=== PATIENT | male | born 1980 | race Caucasian/White ===

== ENCOUNTER 2021-12-30 05:52 | Emergency (ER) | payer SELFPAY ==
[2021-12-30] MEDS ORDERED: Pantoprazole 40 MG in Sodium Chloride 0.9% 10 ML IVPUSH ONE (06:26)
[2021-12-30] MEDS ORDERED: Sodium Chloride 0.9% 2.5 ML Syringe FLUSH PRN (06:26)
[2021-12-30] MEDS ORDERED: Sodium Chloride 0.9% 10 ML Syringe FLUSH PRN (06:26)
[2021-12-30] MEDS ORDERED: Ondansetron 4 MG/2 ML SDV IVPUSH ONE (06:26)
[2021-12-30] MEDS ORDERED: Haloperidol Lactate 5 MG/ML SDV IM ONE (06:31)
[2021-12-30] MEDS ORDERED: Sodium Chloride 0.9% 1,000 ML IV ONE (06:32)
[2021-12-30] MEDS ORDERED: Haloperidol Lactate 5 MG/ML SDV ONE (06:32)
[2021-12-30 06:49] LABS: BLOOD UREA NITROGEN,BUN 11 mg/dL (7.0-18.0); CARBON DIOXIDE,CO2 25.4 mmol/L (21.0-32.0); CHLORIDE,CL 100 mmol/L (98-107); GLUCOSE RANDOM 260 mg/dL (74-106); LIPASE 123 U/L (73-393); POTASSIUM,K 4.1 mmol/L (3.5-5.1); SODIUM,NA 134 mmol/L (136-148)
[2021-12-30 06:50] LABS: ESTIMATED GFR 71 mL/min (>60)
[2021-12-30] MEDS ORDERED: Iopamidol 755 MG/ML 200 ML Multipack Bottle IVPUSH ONE (07:09)
[2021-12-30] MEDS ORDERED: Iopamidol 755 Mg/ML 100 ML Bottle IVPUSH ONE (07:13)
[2021-12-30 08:01] LABS: HEMOGLOBIN A1C 8.8 %
== END 2021-12-30 08:39 | disposition home or self-care (01) ==
LOC: MW.ED 05:52
DX: E11.9 Type 2 diabetes mellitus without complications (principal); Z72.0 Tobacco use; Z79.84 Long term (current) use of oral hypoglycemic drugs
CPT/HCPCS: 36415; 74177; 80053; 83036; 83690; 85025; 96361; 96372; 96374; 99284; C9113; J1630; J3490; J7030; Q9967

== ENCOUNTER 2022-01-31 23:08 | Emergency (ER) | payer OTHER | END 2022-02-01 01:50 | disposition left against medical advice (07) | LOC: MW.ED 23:08 | DX: Z53.21 Procedure and treatment not carried out due to patient leaving prior to being seen by health care provider (principal) ==

== ENCOUNTER 2022-02-01 09:28 | Emergency (ER) | payer OTHER ==
[2022-02-01] MEDS ORDERED: Sodium Chloride 0.9% 1,000 ML IV ONE (10:09)
[2022-02-01] MEDS ORDERED: Haloperidol Lactate 5 MG/ML SDV IM ONE (10:09)
[2022-02-01 10:57] LABS: CARBON DIOXIDE,CO2 28.4 mmol/L (21.0-32.0); POTASSIUM,K 4.2 mmol/L (3.5-5.1)
[2022-02-01 11:10] LABS: CORONAVIRUS COVID-19 NAA NEGATIVE (NEGATIVE); INFLUENZA A NAA NEGATIVE (NEGATIVE); INFLUENZA B NAA NEGATIVE (NEGATIVE); RESPIRATORY SYNCYTIAL VIR NAA NEGATIVE (NEGATIVE)
[2022-02-01] MEDS ORDERED: Iopamidol 755 MG/ML 500 ML Multipack Bottle IVPUSH ONE (11:11)
[2022-02-01] MEDS ORDERED: Ibuprofen 400 MG Tab PO ONE (11:36)
[2022-02-01] MEDS ORDERED: Acetaminophen 325 MG Tab PO ONE (11:36)
== END 2022-02-01 13:13 | disposition home or self-care (01) ==
LOC: MW.ED 09:28
DX: R10.13 Epigastric pain (principal); R10.12 Left upper quadrant pain; Z20.822 Contact with and (suspected) exposure to COVID-19
CPT/HCPCS: 0241U; 36415; 74177; 80053; 83690; 85025; 96360; 96372; 99284; A9270; J1630; J7030; Q9967

== ENCOUNTER 2022-03-05 14:51 | Emergency (ER) | payer OTHER ==
[2022-03-05] MEDS ORDERED: Promethazine 25 MG/ML SDV IM ONE (17:50)
[2022-03-05] MEDS ORDERED: Ketorolac 60 MG/2 ML SDV IM ONE (17:50)
[2022-03-05 18:39] LABS: CARBON DIOXIDE,CO2 30.6 mmol/L (21.0-32.0); POTASSIUM,K 3.3 mmol/L (3.5-5.1)
[2022-03-05] MEDS ORDERED: Iopamidol 755 MG/ML 500 ML Multipack Bottle IVPUSH ONE (18:55)
[2022-03-05] MEDS ORDERED: Morphine 4 MG/ML Syringe IVPUSH ONE (18:57)
[2022-03-05] MEDS ORDERED: Sodium Chloride 0.9% 1,000 ML IV ONE (18:58)
[2022-03-05] MEDS ORDERED: HYDROmorphone 1 MG/ML Syringe IVPUSH ONE (20:49)
[2022-03-05] MEDS ORDERED: Ondansetron 4 MG/2 ML SDV IVPUSH ONE (20:49)
[2022-03-05 21:01] LABS: CORONAVIRUS COVID-19 NAA NEGATIVE (NEGATIVE); INFLUENZA A NAA NEGATIVE (NEGATIVE); INFLUENZA B NAA NEGATIVE (NEGATIVE)
== END 2022-03-05 22:10 | disposition home or self-care (01) ==
LOC: MW.ED 14:51
DX: K59.00 Constipation, unspecified (principal); F17.210 Nicotine dependence, cigarettes, uncomplicated; Z20.822 Contact with and (suspected) exposure to COVID-19
CPT/HCPCS: 0240U; 36415; 74019; 74177; 76705; 80053; 81001; 83690; 85025; 96361; 96372; 96374; 96375; 99284; J1170; J1885; J2270; J2405; J2550; J7030; Q9967

== ENCOUNTER 2022-07-31 09:57 | Emergency (ER) | payer SELFPAY ==
[2022-07-31] MEDS ORDERED: Ondansetron 4 MG/2 ML SDV IVPUSH ONE (10:29)
[2022-07-31] MEDS ORDERED: Sodium Chloride 0.9% 1,000 ML IV ONE (10:29)
[2022-07-31 10:38] LABS: BASOPHILS PERCENT AUTO 0.2 % (0.0-1.5); EOSINOPHILS ABSOLUTE AUTO 0.1 K/uL (0.0-0.7); EOSINOPHILS PERCENT AUTO 0.7 % (0.0-7.0); HEMATOCRIT 40.3 % (38.0-50.0); HEMOGLOBIN 13.9 g/dL (13.0-17.0); LYMPHOCYTES ABSOLUTE AUTO 2.4 K/uL (0.6-2.4); LYMPHOCYTES PERCENT AUTO 27.5 % (16.0-40.0); MEAN CORPUSCULAR HEMOGLOBIN 32.5 pg (27.0-32.0); MEAN CORPUSCULAR HGB CONC 34.5 g/dL (31.0-37.0); MEAN CORPUSCULAR VOLUME 94.2 fL (80.0-98.0); MONOCYTES ABSOLUTE AUTO 0.6 K/uL (0.0-0.8); MONOCYTES PERCENT AUTO 6.6 % (0.0-15.0); NEUTROPHILS ABSOLUTE AUTO 5.7 K/uL (1.4-5.7); NRBC ABSOLUTE 0 K/uL; PLATELET COUNT,PLT 282 K/uL (150-400); RED BLOOD CELL COUNT 4.28 M/uL (4.50-5.90)
[2022-07-31 11:00] LABS: HEMOGLOBIN A1C 5.9 %
[2022-07-31] MEDS ORDERED: Ketorolac 30 MG/ML SDV IVPUSH ONE (11:03)
[2022-07-31 11:26] LABS: A/G RATIO 0.9 (0.9-1.6); ALBUMIN 3.2 g/dL (3.4-5.0); BILIRUBIN TOTAL 0.7 mg/dL (0.2-1.0); CALCIUM 8.7 mg/dL (8.5-10.1); CARBON DIOXIDE,CO2 25.7 mmol/L (21.0-32.0); CREATININE 1.1 mg/dL (0.8-1.3); EST CRCL DRUG DOSING (CG) 93.17 mL/min; MAGNESIUM 2.1 mg/dL (1.8-2.4); POTASSIUM,K 3.8 mmol/L (3.5-5.1); PROTEIN TOTAL,TP 6.6 g/dL (6.4-8.2)
[2022-07-31 12:49] LABS: APPEARANCE,URINE CLEAR; BILIRUBIN,URINE NEGATIVE (NEGATIVE); COLOR,URINE YELLOW; GLUCOSE,URINE NEGATIVE (NEGATIVE); KETONES,URINE NEGATIVE (NEGATIVE); LEUKOCYTE ESTERASE,URINE NEGATIVE (NEGATIVE); NITRITE,URINE NEGATIVE (NEGATIVE); OCCULT BLOOD,URINE NEGATIVE (NEGATIVE); PROTEIN,URINE NEGATIVE (NEGATIVE)
[2022-07-31] MEDS ORDERED: Promethazine 25 MG/ML SDV IM ONE (13:04)
== END 2022-07-31 13:47 | disposition home or self-care (01) ==
LOC: MW.ED 09:57
DX: R10.32 Left lower quadrant pain (principal); R10.13 Epigastric pain; J45.909 Unspecified asthma, uncomplicated; F17.210 Nicotine dependence, cigarettes, uncomplicated; Z48.02 Encounter for removal of sutures; Z91.148 Patient's other noncompliance with medication regimen for other reason
CPT/HCPCS: 36415; 80053; 81003; 83036; 83690; 83735; 85025; 96361; 96372; 96374; 96375; 99284; J1885; J2405; J2550; J7030

== ENCOUNTER 2022-12-17 15:06 | Emergency (ER) | payer SELFPAY ==
[2022-12-17] MEDS ORDERED: Lidocaine 1% PF 2 ML SDV INJECT STA (16:18)
[2022-12-17] MEDS ORDERED: Bupivacaine 0.5% 10 ML SDV INJECT STA (16:18)
== END 2022-12-17 17:02 | disposition home or self-care (01) ==
LOC: MW.ED 15:06
DX: K09.0 Developmental odontogenic cysts (principal)
CPT/HCPCS: 64400; 99282; J3490; 99283

== ENCOUNTER 2023-02-09 00:30 | Emergency (ER) | payer SELFPAY | END 2023-02-09 01:17 | LOC: MW.ED 00:30 | DX: Z02.89 Encounter for other administrative examinations (principal); S31.134A Puncture wound of abdominal wall without foreign body, left lower quadrant without penetration into peritoneal cavity, initial encounter; J45.909 Unspecified asthma, uncomplicated | CPT/HCPCS: 99282; 99283 ==

== ENCOUNTER 2023-03-09 19:50 | Emergency (ER) | payer OTHER ==
[2023-03-09] MEDS ORDERED: Alum Hydro/Mag Hydro/Simeth XS 15 ML, Lidocaine 2% 5 ML PO ONE ×2 (22:56)
[2023-03-09 23:10] LABS: BASOPHILS ABSOLUTE AUTO 0.04 K/uL (0.00-0.20); BASOPHILS PERCENT AUTO 0.4 % (0.0-1.0); EOSINOPHILS ABSOLUTE AUTO 0.05 K/uL (0.00-0.45); EOSINOPHILS PERCENT AUTO 0.5 % (0.0-6.0); HEMOGLOBIN 15.7 g/dL (14.0-18.0); IMMATURE GRAN ABSOLUTE AUTO 0.02 K/uL (0.00-0.05); IMMATURE GRAN PERCENT AUTO 0.2 % (0.0-0.4); LYMPHOCYTES ABSOLUTE AUTO 2.91 K/uL (1.00-4.80); LYMPHOCYTES PERCENT AUTO 27.5 % (24.0-44.0); MEAN CORPUSCULAR HEMOGLOBIN 33.4 pg (28.0-32.0); MEAN CORPUSCULAR HGB CONC 36.5 g/dL (32.0-36.0); MEAN CORPUSCULAR VOLUME 91.5 fL (83.0-99.0); MEAN PLATELET VOLUME 8.7 fL (9.4-12.4); MONOCYTES PERCENT AUTO 7.6 % (0.0-8.0); NEUTROPHILS ABSOLUTE AUTO 6.77 K/uL (1.80-7.70); NEUTROPHILS PERCENT AUTO 63.8 % (41.0-71.0); PLATELET COUNT,PLT 244 K/uL (150-400); WHITE BLOOD CELL COUNT,WBC 10.59 K/uL (3.9-11.3)
[2023-03-10 00:17] LABS: ALBUMIN 3.3 g/dL (3.4-5.0); BILIRUBIN TOTAL 0.9 mg/dL (0.2-1.0); CALCIUM 8.8 mg/dL (8.5-10.1); CARBON DIOXIDE,CO2 31.1 mmol/L (21.0-32.0); EST CRCL DRUG DOSING (CG) 105.62 mL/min; POTASSIUM,K 3.2 mmol/L (3.5-5.1); PROTEIN TOTAL,TP 6.6 g/dL (6.4-8.2)
== END 2023-03-10 00:53 | disposition home or self-care (01) ==
LOC: MW.ED 19:50
DX: R10.13 Epigastric pain (principal)
CPT/HCPCS: 36415; 80053; 83690; 85025; 99284; A9270; 99282

== ENCOUNTER 2023-05-13 18:35 | Emergency (ER) | payer SELFPAY ==
[2023-05-13] MEDS: Amoxicillin/Clavulanate K 875-125 MG Tab PO ONE (19:58)
[2023-05-13] MEDS: Lidocaine 1% with EPINEPHrine 1:100,000 50 ML MDV INFILT ONE (20:33)
[2023-05-13] MEDS: Lidocaine 1% with EPINEPHrine 1:200,000 30 ML SDV ONE (20:33)
[2023-05-13] MEDS: Lidocaine 1% with EPINEPHrine 1:200,000 30 ML SDV INJECT STA (20:38)
== END 2023-05-13 20:39 | disposition home or self-care (01) ==
LOC: MW.ED 18:35
DX: K04.7 Periapical abscess without sinus (principal); Z75.8 Other problems related to medical facilities and other health care
CPT/HCPCS: 41800; 99283; A9270; J3490

== ENCOUNTER 2024-03-24 18:37 | Emergency (ER) | payer SELFPAY ==
[2024-03-24] MEDS: Alum Hydrox/Mag Hydrox/Simeth 15 ML, Lidocaine 2% 5 ML PO ONE (20:28)
[2024-03-24] MEDS: Sodium Chloride 0.9% 1,000 ML IV ONE (20:28)
[2024-03-24] MEDS: Haloperidol Lactate 5 MG/ML SDV IM ONE (20:29)
[2024-03-24 20:30] LABS: BASOPHILS ABSOLUTE AUTO 0.03 K/uL (0.00-0.20); BASOPHILS PERCENT AUTO 0.3 % (0.0-1.0); EOSINOPHILS ABSOLUTE AUTO 0.01 K/uL (0.00-0.45); EOSINOPHILS PERCENT AUTO 0.1 % (0.0-6.0); HEMATOCRIT 44.2 % (42.0-52.0); HEMOGLOBIN 15.4 g/dL (14.0-18.0); IMMATURE GRAN ABSOLUTE AUTO 0.03 K/uL (0.00-0.05); IMMATURE GRAN PERCENT AUTO 0.3 % (0.0-0.4); LYMPHOCYTES ABSOLUTE AUTO 1.35 K/uL (1.00-4.80); LYMPHOCYTES PERCENT AUTO 14.8 % (24.0-44.0); MEAN CORPUSCULAR HGB CONC 34.8 g/dL (32.0-36.0); MEAN CORPUSCULAR VOLUME 94.8 fL (83.0-99.0); MEAN PLATELET VOLUME 8.6 fL (9.4-12.4); MONOCYTES ABSOLUTE AUTO 0.58 K/uL (0.00-0.80); MONOCYTES PERCENT AUTO 6.3 % (0.0-8.0); NEUTROPHILS ABSOLUTE AUTO 7.14 K/uL (1.80-7.70); NEUTROPHILS PERCENT AUTO 78.2 % (41.0-71.0); PLATELET COUNT,PLT 263 K/uL (150-400); RED BLOOD CELL COUNT 4.66 M/uL (4.52-5.90); WHITE BLOOD CELL COUNT,WBC 9.14 K/uL (3.9-11.3)
[2024-03-24 21:04] LABS: A/G RATIO 1.2 (0.9-1.6); BILIRUBIN TOTAL 0.7 mg/dL (0.2-1.0); CALCIUM 9.2 mg/dL (8.5-10.1); CARBON DIOXIDE,CO2 20.9 mmol/L (21.0-32.0); CREATININE 1.1 mg/dL (0.8-1.3); EST CRCL DRUG DOSING (CG) 95.04 mL/min; MAGNESIUM 1.9 mg/dL (1.8-2.4); POTASSIUM,K 4.3 mmol/L (3.5-5.1); PROTEIN TOTAL,TP 7.3 g/dL (6.4-8.2)
[2024-03-24] MEDS: Iopamidol 755 MG/ML 500 ML Multipack Bottle IVPUSH ONE (21:20)
[2024-03-24 21:59] LABS: COLOR,URINE YELLOW
[2024-03-24 22:00] LABS: APPEARANCE,URINE SLT CLOUDY; BILIRUBIN,URINE NEGATIVE; GLUCOSE,URINE NEGATIVE; KETONES,URINE 80; PROTEIN,URINE TRACE
[2024-03-24 22:01] LABS: LEUKOCYTE ESTERASE,URINE NEGATIVE (NEGATIVE); NITRITE,URINE POSITIVE (NEGATIVE); OCCULT BLOOD,URINE TRACE; UROBILINOGEN,URINE 0.2 (<1.0)
[2024-03-24 22:09] LABS: BACTERIA,URINE FEW (NEGATIVE); EPITHELIAL CELLS,URINE FEW (NONE-FEW); RBC,URINE 0-2 (0-2/HPF); WBC,URINE 0-1 (0-5/HPF)
[2024-03-24] MEDS: Ketorolac 30 MG/ML SDV IVPUSH ONE (22:12)
== END 2024-03-24 22:38 | disposition home or self-care (01) ==
LOC: MW.ED 18:37
DX: R10.12 Left upper quadrant pain (principal); J45.909 Unspecified asthma, uncomplicated; F17.210 Nicotine dependence, cigarettes, uncomplicated; Z75.8 Other problems related to medical facilities and other health care
CPT/HCPCS: 36415; 74177; 80053; 81001; 83690; 83735; 85025; 87086; 96361; 96372; 96374; 99284; A9270; J1630; J1885; J7030; Q9967; 99283

== ENCOUNTER 2024-05-19 21:59 | Emergency (ER) | payer MEDICAID ==
[2024-05-19 22:22] LABS: BASOPHILS ABSOLUTE AUTO 0.07 K/uL (0.00-0.20); BASOPHILS PERCENT AUTO 0.5 % (0.0-1.0); EOSINOPHILS ABSOLUTE AUTO 0.08 K/uL (0.00-0.45); EOSINOPHILS PERCENT AUTO 0.6 % (0.0-6.0); HEMATOCRIT 44.3 % (42.0-52.0); HEMOGLOBIN 15.6 g/dL (14.0-18.0); IMMATURE GRAN ABSOLUTE AUTO 0.03 K/uL (0.00-0.05); IMMATURE GRAN PERCENT AUTO 0.2 % (0.0-0.4); LYMPHOCYTES ABSOLUTE AUTO 3.53 K/uL (1.00-4.80); LYMPHOCYTES PERCENT AUTO 24.3 % (24.0-44.0); MEAN CORPUSCULAR HEMOGLOBIN 33.2 pg (28.0-32.0); MEAN CORPUSCULAR HGB CONC 35.2 g/dL (32.0-36.0); MEAN CORPUSCULAR VOLUME 94.3 fL (83.0-99.0); MEAN PLATELET VOLUME 8.5 fL (9.4-12.4); MONOCYTES ABSOLUTE AUTO 1.07 K/uL (0.00-0.80); MONOCYTES PERCENT AUTO 7.4 % (0.0-8.0); NEUTROPHILS ABSOLUTE AUTO 9.73 K/uL (1.80-7.70); PLATELET COUNT,PLT 281 K/uL (150-400); WHITE BLOOD CELL COUNT,WBC 14.51 K/uL (3.9-11.3)
[2024-05-19 22:46] LABS: A/G RATIO 1.2 (0.9-1.6); BILIRUBIN TOTAL 0.6 mg/dL (0.2-1.0); CALCIUM 9.5 mg/dL (8.5-10.1); CARBON DIOXIDE,CO2 28.1 mmol/L (21.0-32.0); CREATININE 1.2 mg/dL (0.8-1.3); EST CRCL DRUG DOSING (CG) 84.54 mL/min; POTASSIUM,K 3.2 mmol/L (3.5-5.1); PROTEIN TOTAL,TP 7.4 g/dL (6.4-8.2)
[2024-05-20] MEDS: droPERidol 2.5 MG/ML SDV IVPUSH ONE (00:17)
[2024-05-20] MEDS: Pantoprazole 40 MG in Sodium Chloride 0.9% 10 ML IVPUSH ONE (00:17)
[2024-05-20] MEDS: Sodium Chloride 0.9% 1,000 ML IV ONE (00:18)
[2024-05-20 02:18] VITALS: BP 132/88; PULSE 75
== END 2024-05-20 02:17 | disposition home or self-care (01) ==
LOC: MW.ED 21:59
DX: K29.00 Acute gastritis without bleeding (principal); J45.909 Unspecified asthma, uncomplicated; Z79.899 Other long term (current) drug therapy; Z75.3 Unavailability and inaccessibility of health-care facilities
CPT/HCPCS: 36415; 80053; 83690; 84484; 85025; 87428-QW; 93005; 96361; 96374; 96375; 99284-25; J1790; J2470; J7030

== ENCOUNTER 2024-05-26 15:32 | Emergency (ER) | payer MEDICAID ==
[2024-05-26] MEDS: Amoxicillin/Clavulanate K 875-125 MG Tab PO STA (16:55)
[2024-05-26] MEDS: traMADol 50 MG Tab PO STA (16:55)
== END 2024-05-26 16:58 | disposition home or self-care (01) ==
LOC: MW.ED 15:32
DX: K04.7 Periapical abscess without sinus (principal); J45.909 Unspecified asthma, uncomplicated; Z79.899 Other long term (current) drug therapy; Z75.3 Unavailability and inaccessibility of health-care facilities
CPT/HCPCS: 99283; A9270

== ENCOUNTER 2024-06-03 20:05 | Emergency (ER) | payer MEDICAID ==
[2024-06-03] MEDS: Haloperidol Lactate 5 MG/ML SDV IM ONE (20:13)
[2024-06-03] MEDS: Lidocaine 1% 5 ML VIAL INJECT ONE (20:13)
[2024-06-03] MEDS: Diphtheria,Pertussis(Acell),Tetanus Vaccine 0.5 ML Syringe IM ONE (20:50)
== END 2024-06-03 20:51 ==
LOC: MW.ED 20:05
DX: S01.511A Laceration without foreign body of lip, initial encounter (principal); Z23 Encounter for immunization; Y04.0XXA Assault by unarmed brawl or fight, initial encounter; Y93.89 Activity, other specified; Z75.8 Other problems related to medical facilities and other health care
CPT/HCPCS: 12011; 90471; 90715; 96372; 99283; J1630; J2003